=== PATIENT | female | born 1940 | race Caucasian/White ===

== ENCOUNTER 2023-04-24 09:24 | Emergency (ER) | payer MEDICARE, OTHER, SELFPAY ==
[2023-04-24] VITALS (8 sets, daily range): BP systolic 175–250; BP diastolic 70–103; PULSE 54–81; RESP 12–18; TEMP 36.5; O2SAT 97–99; BMI 26.4
--- NOTE | 2023-04-24 09:31 | ECG_ITS ---
[facility] Test Date: 2023-04-24 Pat Name: Hyacinth Medina Department: Room: Gender: Female Head Start Coordinator: : 1940 Requested By: Aayush Patton Order Number: [id number] Reading MD: William Hatch M.D. Measurements Intervals [place] Rate: 55 P: 67 [place]: 213 QRS: 2 QRSD: 105 T: 69 QT: 440 QTc: 421 Interpretive Statements SINUS BRADYCARDIA WITH FIRST DEGREE AV BLOCK POSSIBLE ANTERIOR MYOCARDIAL INFARCTION , OF INDETERMINATE AGE [30 ms Q WAVE IN V3/V4, OR R < 0.2 mV IN V4] No previous ECG available for comparison Electronically Signed On 04-24-2023 9:57:08 CDT by William Hatch M.D. [email or web address] health rehabilitation hospitalMarkITxselect medical [facility] [id number]
--- NOTE | 2023-04-24 09:32 | ED_ITS ---
HPI - General Adult General: Chief complaint: Weakness Stated complaint: bradycardia Time Seen by Provider: 04/24/23 09:28 Source: patient Mode of arrival: EMS History of Present Illness: 82-year-old female presents emergency room via EMS. called EMS reported that she she has been increasingly weak and confused she has some baseline issues with memory at times. She has a history of hypertension she did take her medications today despite that she has markedly elevated blood pressure. Initially her heart rate was in the 50s and she arrived and varies between the mid 50s and upper 60 with sinus bradycardia. She denies chest pain shortness of breath or abdominal pain. Associated symptoms: Reports confusion; Deny chest pain, cough, diaphoresis, decreased appetite, dyspnea, fevers/chills, headache(s), malaise, nausea, rash, palpitations, seizures, short of breath, syncope, vomiting or weakness Review of Systems Const: Denies: fever(s), chills, fatigue, malaise or diaphoresis ENMT: Denies: throat pain, ear or mastoid pain, nasal discharge or nasal congestion Card: Denies: chest pain, palpitations or syncope Resp: Denies: dyspnea, productive cough or non-productive cough GI: Denies: abdominal pain, nausea or vomiting : Denies: flank pain, difficulty voiding, dysuria, urinary frequency or urinary urgency Skin/Breast: Denies: rash Neuro: Reports: confusion; Denies: headache(s) [facility] ED PFSH: Medical History (Updated 04/24/23 @ 11:51 by Aayush Mansfield DO) Hypertension Physical Exam Const: GENERAL APPEARANCE: cooperative and comfortable ORIENTATION/CO NSCIOUSNESS: Yes awake, Yes oriented to person, Yes oriented to place and Yes oriented to time HENMT: COMMON NORMALS: normocephalic, atraumatic and hearing grossly normal bilaterally HEAD & SCALP: normocephalic and atraumatic Resp: COMMON NORMALS: normal respiratory effort, No retractions, No use of accessory muscles and clear to auscultation bilaterally AUSCULTATION: clear to auscultation bilaterally Cardio: COMMON NORMALS: regular rhythm and No murmurs present (Cardio) RATE: bradycardic RHYTHM: regular rhythm GI: COMMON NORMALS: Soft to palpation and No hepatosplenomegaly present AUSCULTATION: Yes normoactive bowel sounds PALPATION: Yes Soft to palpation, No Tenderness to palpation present (GI), No Guarding due to palpation present (GI) and Yes No hepatosplenomegaly present Extremity: COMMON NORMALS: normal to inspection, capillary refill normal, no clubbing, cyanosis or edema, no calf tenderness and no pedal edema Neuro: SENSORIUM/ORIENTATION: Yes oriented to person, Yes oriented to place and Yes oriented to time Skin: COMMON NORMALS: no rashes or lesions noted GENERAL SKIN EXAM: no rashes or lesions noted Course Vital Signs: Vital signs: Vital Signs Temperature 97.7 F 04/24/23 09:25 Pulse Rate 68 04/24/23 12:41 Respiratory Rate 18 04/24/23 12:41 Blood Pressure 183/75 04/24/23 12:41 Pulse Oximetry 97 04/24/23 12:41 Oxygen Delivery Me thod Room Air 04/24/23 10:14 MDM - General Adult Medical Decision Making Patient remained bradycardic in the emergency room did not see significant dips below 60 while she was here she is feeling better. She is somewhat hypertensive. We will increase her losartan to 100 daily add amlodipine 5 daily. Set her up for an outpatient 48-hour Holter monitor and follow-up with her primary care doctor. Return if she has further problems. Reviewed labs and imaging and EKGs with the patient no acute findings noted. Medical Records I reviewed the patient's medical records. Lab Data I reviewed the patient's lab results. 04/24/23 09:15 04/24/23 09:15 Radiology Impressions Chest X-Ray 04/24/23 09:58 IMPRESSION: No acute findings. Laboratory Results WBC 6.8 10^3/uL (4.0-10.0) 04/24/23 09:15 RBC 5.01 10^6/uL (4.1-5.3) 04/24/23 09:15 Hgb 15.2 g/dL (11.5-15.3) 04/24/23 09:15 Hct 45.1 % (37.0-47.0) 04/24/23 09:15 MCV 90.0 fl (81-99) 04/24/23 09:15 MCH 30.3 pg (28.0-34.0) 04/24/23 09:15 MCHC 33.7 g/dL (30.0-36.0) 04/24/23 09:15 RDW 13.6 % (12.1-15.1) 04/24/23 09:15 Plt Count 154 10^3/cmm (130-400) 04/24/23 09:15 MPV 14.2 fL (7.4-10.4) H 04/24/23 09:15 Neut % (Auto) 56.5 % 04/24/23 09:15 Lymph % (Auto) 30.9 % 04/24/23 09:15 Hoke % (Auto) 7.8 % 04/24/23 09:15 Eos % (Auto) 3.8 % 04/24/23 09:15 Baso % (Auto) 0.9 % 04/24/23 09:15 Neut # (Auto) 3.81 10^3/uL (1.8-7.7) 04/24/23 09:15 Lymph # (Auto) 2.1 10^3/uL (0.8-4.8) 04/24/23 09:15 Hoke # (Auto) 0.5 10^3/uL (0.2-0.9) 04/24/23 09:15 Eos # (Auto) 0.3 10^3/uL (0.0-0.8) 04/24/23 09:15 Baso # (Auto) 0.1 10^3/uL (0.0-0.1) 04/24/23 09:15 Nucleated RBC % (auto) 0 % 04/24/23 09:15 Nucleated RBCs # 0.0 /100WBC 04/24/23 09:15 Sodium 141 mmol/L (136-145) 04/24/23 09:15 Potassium 3.8 mmol/L (3.5-5.1) 04/24/23 09:15 Chloride 102 mmol/L (98-107) 04/24/23 09:15 Carbon Dioxide 29 mmol/L (22-29) 04/24/23 09:15 Anion Gap 13.8 (5-19) 04/24/23 09:15 BUN 19 mg/dL (8-23) 04/24/23 09:15 Creatinine 1.0 mg/dL (0.5-0.9) H 04/24/23 09:15 GFR Calculation Not Reportable 04/24/23 09:15 Glucose 110 mg/dL (65-115) 04/24/23 09:15 Calculated Osmolality 295 mOsm/kg (285-295) 04/24/23 09:15 Calcium 9.6 mg/dL (8.5-10.5) 04/24/23 09:15 Total Bilirubin 0.6 mg/dL (0.15-1.2) 04/24/23 09:15 AST 16 U/L (0-32) 04/24/23 09:15 ALT 14 U/L (0-33) 04/24/23 09:15 Alkaline Phosphatase 57 U/L (35-105) 04/24/23 09:15 Troponin T Baseline 17 ng/L (0-10) H 04/24/23 09:15 Troponin T 120 Minute 15.58 ng/L (0-10) H 04/24/23 10:58 Delta Troponin T -1.42 ABS# (0-10) L 04/24/23 10:58 Total Protein 7.0 g/dL (6.6-8.7) 04/24/23 09:15 Albumin 4.2 g/dL (3.5-5.2) 04/24/23 09:15 Globulin 2.8 g/dL (1.3-4.6) 04/24/23 09:15 TSH 2.97 uIU/mL (0.27-4.20) 04/24/23 09:15 Discharge Plan Discharge Patient Disposition: Home Clinical Impression: Hypertension, Bradycardia Condition: Stable Prescriptions: New amlodipine 5 mg tablet 5 mg PO DAILY Qty: 30 0RF losartan 100 mg tablet 100 mg PO DAILY Qty: 30 0RF Discontinued losartan 50 mg tablet 50 mg PO QAM No Action donepezil 5 mg tablet 5 mg PO QAM tramadol 50 mg tablet 50 mg PO QAM metformin 500 mg tablet extended release 24 hr 500 mg PO QAM Vitamin D3 125 mcg (5,000 unit) Tablet 125 mcg PO QAM Discharge Orders: Discharge ED (Routine); Ordered 04/24/23 Ordered By: Aayush Mansfield Referrals: Iva Barriga MD [Primary Care Provider] - Discharge Diet: Usual diet Discharge Activity: Resume usual activity Patient Instructions: Opioid Safety, Pain Management Activity Restrictions/Additional Instructions: You are seen today for low heart rate and elevated blood pressure. Recommend you increase your losartan to 100 mg daily and add amlodipine 5 mg daily. assistant customer service manager will make arrangements for you to have an outpatient 48-hour Holter monitor and follow-up with your primary care doctor after this. Coding Level of Care Code ED Financial Foundations Associate for Mabel Judd
[2023-04-24 09:41] LABS: Basophils # 0.1 10^3/uL (0.0-0.1); Basophils % 0.9 %; Eosinophils # 0.3 10^3/uL (0.0-0.8); Eosinophils % 3.8 %; Hematocrit 45.1 % (37.0-47.0); Hemoglobin 15.2 g/dL (11.5-15.3); Lymphocytes # 2.1 10^3/uL (0.8-4.8); Lymphocytes % 30.9 %; Mean Corpuscular HGB Conc 33.7 g/dL (30.0-36.0); Mean Corpuscular Hemoglobin 30.3 pg (28.0-34.0); Mean Platelet Volume 14.2 fL (7.4-10.4); Monocytes # 0.5 10^3/uL (0.2-0.9); Monocytes % 7.8 %; Neutrophils # 3.81 10^3/uL (1.8-7.7); Neutrophils % 56.5 %; Nucleated Red Blood Cells % 0 %; Platelet Count 154 10^3/cmm (130-400); Red Blood Count 5.01 10^6/uL (4.1-5.3); Red Cell Distribution Width 13.6 % (12.1-15.1); White Blood Count 6.8 10^3/uL (4.0-10.0)
--- NOTE | 2023-04-24 09:51 | PC.PHAR ---
pt and pts verified pts medications-pts marco a states he doesnt think the pt is taking mobic 7.5mg daily anymore ext shows last filled 11/16/22 90d/s-pt states she takes ultram 50mg qam ext shows last filled 04/10/23 7d/s 50mg bid prn-notes are made in the pharmacy comments
--- NOTE | 2023-04-24 09:58 | XRR_ITS ---
PROCEDURE INFORMATION: Exam: XR Chest Exam date and time: 04/24/2023 10:02 AM Age: 82 years old Clinical indication: Cough and dyspnea; Additional info: Dyspnea/cough TECHNIQUE: Imaging protocol: Radiologic exam of the chest. Views: 1 view. COMPARISON: No relevant prior studies available. FINDINGS: Lungs: Unremarkable. No consolidation. Pleural spaces: Unremarkable. No pleural effusion. No pneumothorax. Heart/Mediastinum: Unremarkable. No cardiomegaly. Bones/joints: Unremarkable. XR/XR chest 1V portable [id number] IMPRESSION: No acute findings.
[2023-04-24] MEDS: hyDRALAzine 20 mg/mL INJ 1 mL IVP (10:04)
[2023-04-24] MEDS: enalaprilat 1.25 mg/mL Inj IVP (10:06)
[2023-04-24 10:07] LABS: Troponin(5th) Baseline 17 ng/L (0-10)
[2023-04-24 10:15] LABS: Alanine Aminotransferase 14 U/L (0-33); Albumin Level 4.2 g/dL (3.5-5.2); Alkaline Phosphatase 57 U/L (35-105); Anion Gap 13.8 (5-19); Aspartate Amino Transferase 16 U/L (0-32); Blood Urea Nitrogen 19 mg/dL (8-23); Calcium 9.6 mg/dL (8.5-10.5); Carbon Dioxide 29 mmol/L (22-29); Chloride 102 mmol/L (98-107); Globulin 2.8 g/dL (1.3-4.6); Glucose 110 mg/dL (65-115); Osmolality Calculated 295 mOsm/kg (285-295); Potassium 3.8 mmol/L (3.5-5.1); Sodium 141 mmol/L (136-145); Thyroid Stimulating Hormone 2.97 uIU/mL (0.27-4.20); Total Bilirubin 0.6 mg/dL (0.15-1.2)
[2023-04-24 11:23] LABS: Troponin 5 2HR 15.58 ng/L (0-10)
--- NOTE | 2023-04-24 11:31 | ECG_ITS ---
[facility] Test Date: 2023-04-24 Pat Name: Hyacinth Medina Department: Room: Gender: Female Configuration Management Consultant: : 1940 Requested By: Aayush Patton Order Number: [id number] Ciara MD: William Hatch M.D. Measurements Intervals [place] Rate: 68 P: 84 AR: 214 QRS: 2 QRSD: 90 T: 60 QT: 401 QTc: 429 Interpretive Statements SINUS RHYTHM WITH FIRST DEGREE AV BLOCK POSSIBLE ANTERIOR MYOCARDIAL INFARCTION , OF INDETERMINATE AGE [30 ms Q WAVE IN V3/V4, OR R < 0.2 mV IN V4] Compared to ECG 04/24/2023 09:43:05 Sinus bradycardia no longer present Myocardial infarct finding still present Electronically Signed On 04-24-2023 14:26:30 CDT by William Hatch M.D. [id number]
[2023-04-24 11:32] LABS: Troponin 5 2HR Delta -1.42 ABS# (0-10)
--- NOTE | 2023-04-25 12:28 | DCPLANNER ---
Addendum entered by Rose Maya 05/12/23 11:07: Patient did attend appointment scheduled with heart care Addendum entered by Rose Maya 04/27/23 10:58: Patient has a follow up appointment scheduled for Tuesday, May 09, 2023 at 11:30 [facility]. Original Note: flooring sales manager had message to schedule an outpatient appointment at [facility] for a 48 hour halter monitor. flooring sales manager faxed signed order to heart care, who will call patient with appointment information.
== END 2023-04-24 12:42 | disposition home or self-care (01) ==
PROVIDERS: Emergency Provider Family Medicine; PCP Family Medicine
DX: I10 Essential (primary) hypertension (principal); R00.1 Bradycardia, unspecified; Z79.84 Long term (current) use of oral hypoglycemic drugs
CPT/HCPCS: 71045; 80053; 84443; 84484; 85025; 93005; 96374; 96375; 99285; J0360; J3490

== ENCOUNTER → 2023-05-09 11:11 | Outpatient (BNVA) | payer MEDICARE, OTHER, SELFPAY | PROVIDERS: PCP Internal Medicine; Visit Provider Internal Medicine Cardiovascular Disease | DX: R00.1 Bradycardia, unspecified (principal) | CPT/HCPCS: 93225 ==

== ENCOUNTER → 2023-06-26 09:08 | Outpatient (BNVA) | payer MEDICARE, OTHER, SELFPAY | PROVIDERS: PCP Internal Medicine; Visit Provider Internal Medicine Cardiovascular Disease | DX: I47.19 Other supraventricular tachycardia (principal); R00.1 Bradycardia, unspecified; I10 Essential (primary) hypertension | CPT/HCPCS: 99204 ==

== ENCOUNTER → 2023-07-03 14:50 | Outpatient (BNVA) | payer MEDICARE, OTHER, SELFPAY | PROVIDERS: PCP Internal Medicine; Visit Provider Internal Medicine Cardiovascular Disease | DX: R00.1 Bradycardia, unspecified (principal); I47.19 Other supraventricular tachycardia; I10 Essential (primary) hypertension; E78.5 Hyperlipidemia, unspecified; E66.9 Obesity, unspecified | CPT/HCPCS: 93005 ==

== ENCOUNTER 2023-07-04 14:08 | Outpatient (CLI) | payer MEDICARE, OTHER, SELFPAY ==
--- NOTE | 2023-07-04 14:15 | USCV_ITS ---
Hyacinth Medina Age: 82 Gender: F : 1940 Exam Date: 07/04/2023 14:41 Ordering Phys: Jackie Freeman MD ([email or web address]) Technologist: SHAE Exam Location: [facility] [place] Indication: BRADYCADIA BP: 160 / 83 HR: 63 Rhythm: Sinus Technical Quality: Adequate MEASUREMENTS (Male / Female) Normal Values 2D ECHO LVOT Diameter 2.0 cm LV Ejection Fraction MOD 2C 70.0 % LV Ejection Fraction 2C AL 68.9 % LA Diameter 3.5 cm LA Width 3.4 cm LA Height 4.5 cm RA Width 2.9 cm RA Height 5.1 cm Aorta at Sinotubular Diameter 2.2 cm IVC Diameter 1.1 cm M-MODE Aortic Annulus Diameter 2.4 cm LA Ao Ratio MM 1.3 MV E Point Septal Separation 0.2 cm DOPPLER AV Peak Velocity 133.0 cm/s LVOT Peak Velocity 138.0 cm/s AV Area Cont Eq vti 3.7 cm squared AV Area Cont Eq pk 3.2 cm squared MV Peak Velocity 100.0 cm/s MV Area PHT 3.3 cm squared Mitral E to A Ratio 0.7 MV E' Velocity 36.0 cm/s Mitral E to MV E' Ratio 8.9 Mitral E to LV E' Lateral Ratio 8.9 Mitral E to LV E' Septal Ratio 9.0 TR Peak Velocity 271.0 cm/s TR Peak Gradient 29.4 mmHg TR Mean Velocity 211.7 cm/s TR Mean Gradient 19.0 mmHg TR Velocity Time Integral 81.1 cm TV Peak E Velocity 56.0 cm/s Right Atrial Pressure 3.0 mmHg Pulmonary Artery Systolic Pressu 32.4 mmHg PV Peak Velocity 144.0 cm/s RV Acceleration Time 0.1 s RV Ejection Time 0.3 s RV AcT/ET 0.2 FINDINGS Left Ventricle Normal left ventricular size, systolic function and wall thickness, with no regional wall motion abnormalities. Left ventricular ejection fraction is estimated at 65 %. Normal diastolic function. Right Ventricle Normal right ventricular size and systolic function. Right ventricular systolic pressure 34 mmHg. Right Atrium Normal right atrial size. Left Atrium Normal left atrial size. Mitral Valve Structurally normal mitral valve. No mitral valve stenosis. No mitral valve regurgitation. Aortic Valve Structurally normal trileaflet aortic valve. No aortic valve stenosis. Trace aortic valve regurgitation. Tricuspid Valve Structurally normal tricuspid valve. No tricuspid valve stenosis. Mild tricuspid valve regurgitation. Pulmonic Valve Structurally normal pulmonic valve. No pulmonary valve stenosis. Trace pulmonary valve regurgitation. Pericardium No pericardial effusion. Aorta Normal size aortic root and proximal ascending aorta. IVC Normal IVC dimension with >50% respiratory change of the inferior vena cava. CONCLUSIONS 1. Normal left ventricular size, systolic function and wall thickness, with no regional wall motion abnormalities. Left ventricular ejection fraction is estimated at 65 %. Normal diastolic function. 2. Mild tricuspid valve regurgitation. 3.Pulmonary artery pressure estimated at 34 mm Hg. 4. No prior similar studies to compare. Jackie Freeman MD (Electronically Signed) Final Date: 09 July 2023 22:23 S
== END 2023-07-04 14:09 | disposition home or self-care (01) ==
PROVIDERS: PCP Internal Medicine; Visit Provider Internal Medicine Cardiovascular Disease
DX: R00.1 Bradycardia, unspecified (principal); I07.1 Rheumatic tricuspid insufficiency
CPT/HCPCS: 93306

== ENCOUNTER → 2023-07-24 13:54 | Outpatient (BNVA) | payer MEDICARE, OTHER, SELFPAY | PROVIDERS: PCP Internal Medicine; Visit Provider Nurse Practitioner Family | DX: I10 Essential (primary) hypertension (principal) | CPT/HCPCS: 99213 ==

== ENCOUNTER 2023-10-11 14:18 | Emergency (ER) | payer MEDICARE, OTHER, SELFPAY ==
[2023-10-11 14:19] VITALS: BP 126/67; PULSE 60; RESP 16; TEMP 36.8; O2SAT 97
--- NOTE | 2023-10-11 14:25 | PC.NURSE ---
Pt placed on bedside equipment monitor phototypesetting
--- NOTE | 2023-10-11 14:34 | XR_ITS ---
WS: [id number] Portable AP upright chest, 10/11/2023 Clinical Data: dyspnea/cough Comparison: Portable chest, 04/24/2023 Findings: No nodules, masses or effusions are seen. The heart is normal. The pulmonary vascularity is not increased. No pneumonia or pneumothorax is seen. The aortic arch and descending thoracic aorta s how tortuosity. There are monitor leads on the chest wall. Impression: Atherosclerosis.
--- NOTE | 2023-10-11 14:34 | ECG_ITS ---
[facility] Test Date: 2023-10-11 Pat Name: Hyacinth Medina Department: Room: Gender: Female Ear Pull Machine Operator: : 1940 Requested By: Aayush Patton Order Number: [id number] Ciara MD: Alexandre Cordoba M.D. Measurements Intervals [place] Rate: 56 P: 81 SC: 207 QRS: 28 QRSD: 112 T: 53 QT: 460 QTc: 446 Interpretive Statements SINUS BRADYCARDIA LOW QRS VOLTAGE IN PRECORDIAL LEADS [QRS DEFLECTION < 1.0 mV IN CHEST LEADS] POSSIBLE ANTERIOR MYOCARDIAL INFARCTION , OF INDETERMINATE AGE [30 ms Q WAVE IN V3/V4, OR R < 0.2 mV IN V4] Compared to ECG 06/26/2023 09:40:20 Sinus rhythm no longer present Myocardial infarct finding still present Electronically Signed On 10-11-2023 18:26:34 FRONT WINDOW CASHIER by Alexandre Cordoba M.D. [id number]
[2023-10-11 14:47] LABS: Basophils # 0.1 10^3/uL (0.0-0.1); Basophils % 0.8 %; Eosinophils # 0.2 10^3/uL (0.0-0.8); Hematocrit 39.8 % (36-47); Lymphocytes # 2.4 10^3/uL (0.8-4.8); Mean Corpuscular HGB Conc 35.2 g/dL (30-55); Mean Corpuscular Hemoglobin 30.3 pg (27-33); Mean Corpuscular Volume 86.1 fl (85-98); Mean Platelet Volume 13.7 fL (7.4-10.4); Monocytes # 0.7 10^3/uL (0.2-0.9); Monocytes % 8.8 %; Neutrophils # 5.05 10^3/uL (1.8-7.7); Neutrophils % 60.3 %; Nucleated Red Blood Cells % 0 %; Platelet Count 181 10^3/cmm (157-399); Red Blood Count 4.62 10^6/uL (3.85-5.65); Red Cell Distribution Width 12.6 % (12.1-15.1); White Blood Count 8.39 10^3/uL (3.29-11.43)
[2023-10-11 14:57] LABS: Slide Review Slide Review Perform
--- NOTE | 2023-10-11 15:00 | W.ED.DIZZY ---
Documented by User: Aayush Mansfield DO 10/12/23 07:24 HPI - Dizziness General: Chief Complaint: Dizziness Stated Complaint: sent by macy george Time Seen by Provider: 10/11/23 14:33 History of Present Illness: HPI Narrative: 83-year-old female with mild dementia. Patient presents to the ER today complaints of dizziness over the past 2 to 3 weeks. During his episodes patient feels like she has to sit down or she is going to fall down due to dizziness. Patient also had a decreased appetite. Denies chest pain or loss of consciousness. She has had a couple episodes of falling or nearly falling due to her dizziness but has not struck her head. She has some moderate dementia which seems to be progressively worsening recently MD elicited complaint: dizziness Onset (ago): week(s) Timing: gradual onset Severity: mild Description: room spinning Context: change in body position History of similar symptoms: Yes Exacerbating factors: change in body position Relieving factors: remaining still Associated symptoms: Denies abnormal vaginal bleeding, change in hearing, chest pain, chills, cough, diaphoresis, ear discharge, ear pressure, fevers/chills, headache(s), malaise, nausea, nasal congestion, palpitations, rash, short of breath, syncope, tinnitus, vomiting or weakness Associated neuro symptoms: Reports confusion; Deny difficulty speaking, dysphagia, diplopia, extremity weakness, facial numbness, facial weakness, gait changes, numbness in extremities or visual changes Review of Systems Const: Denies: fever(s), chills, malaise or diaphoresis ENMT: Denies: ear discharge, change in hearing, tinnitus or nasal congestion Card: Denies: chest pain, palpitations or syncope Resp: Denies: dyspnea GI: Denies: abdominal pain, nausea, vomiting or dysphagia : Denies: dysuria, urinary frequency or urinary urgency Musc: Denies: neck pain or back pain Skin/Breast: Denies: rash Neuro: Reports: dizziness, vertigo and confusion; Denies: headache(s) or numbness in extremities PFSH ED PFSH: Medical History Hyperlipidemia Obesity Benign hypertension Hypertension Physical Exam Const: GENERAL APPEARANCE: cooperative and comfortable ORIENTATION/CONSCIOUSNESS: Yes awake, Yes oriented to person, Yes oriented to place and Yes oriented to time HENMT: COMMON NORMALS: normocephalic, atraumatic and hearing grossly normal bilaterally HEAD & SCALP: normocephalic and atraumatic GI: AUSCULTATION: Yes normoactive bowel sounds Extremity: COMMON NORMALS: normal to inspection, capillary refill normal, no clubbing, cyanosis or edema, no calf tenderness and no pedal edema Neuro: SENSORIUM/ORIENTATION: Yes oriented to person, Yes oriented to place and Yes oriented to time Skin: COMMON NORMALS: no rashes or lesions noted GENERAL SKIN EXAM: no rashes or lesions noted Course Vital Signs: Vital signs: Vital Signs Temperature 98.3 F 10/11/23 14:19 Pulse Rate 58 L 10/11/23 19:02 Respiratory Rate 18 10/11/23 19:02 Blood Pressure 135/74 10/11/23 19:02 Pulse Oximetry 97 10/11/23 19:02 Oxygen Delivery Me thod Room Air 10/11/23 14:19 MDM - Dizziness Medical Decision Making CT head negative. Laboratory studies to date are unremarkable second troponin is pending EKG did not show any acute ST changes. If negative recommend referral to neurology for further evaluation or ENT. Care signed out to Dr. Villarreal at change of shift. See final notes for diagnosis and disposition. Patient was received in transfer at shift change. Patient physical exam and lab work revealed a sodium of 130, potassium 3.0, BUN/creatinine 1 7/1.2, head CT revealed no acute brain abnormality. Medical Records I reviewed the patient's medical records. Lab Data I reviewed the patient's lab results. 10/11/23 14:40 10/11/23 14:[address] 10/11/23 16:14 IMPRESSION: No acute brain abnormality Mild cerebral atrophy Left-sided sinusitis Laboratory Results WBC 8.39 10^3/uL (3.29-11.43) 10/11/23 14:40 RBC 4.62 10^6/uL (3.85-5.65) 10/11/23 14:40 Hgb 14.00 g/dL (11.27-16.99) 10/11/23 14:40 Hct 39.8 % (36-47) 10/11/23 14:40 MCV 86.1 fl (85-98) 10/11/23 14:40 MCH 30.3 pg (27-33) 10/11/23 14:40 MCHC 35.2 g/dL (30-55) 10/11/23 14:40 RDW 12.6 % (12.1-15.1) 10/11/23 14:40 Plt Count 181 10^3/cmm (157-399) 10/11/23 14:40 MPV 13.7 fL (7.4-10.4) H 10/11/23 14:40 Neut % (Auto) 60.3 % 10/11/23 14:40 Lymph % (Auto) 28.0 % 10/11/23 14:40 [place] % (Auto) 8.8 % 10/11/23 14:40 Eos % (Auto) 2.0 % 10/11/23 14:40 Baso % (Auto) 0.8 % 10/11/23 14:40 Neut # (Auto) 5.05 10^3/uL (1.8-7.7) 10/11/23 14:40 Lymph # (Auto) 2.4 10^3/uL (0.8-4.8) 10/11/23 14:40 [place] # (Auto) 0.7 10^3/uL (0.2-0.9) 10/11/23 14:40 Eos # (Auto) 0.2 10^3/uL (0.0-0.8) 10/11/23 14:40 Baso # (Auto) 0.1 10^3/uL (0.0-0.1) 10/11/23 14:40 Nucleated RBC % (auto) 0 % 10/11/23 14:40 Nucleated RBCs # 0.0 /100WBC 10/11/23 14:40 Sodium 130 mmol/L (136-145) L 10/11/23 14:40 Potassium 3.0 mmol/L (3.5-5.1) L 10/11/23 14:40 Chloride 88 mmol/L (98-107) L 10/11/23 14:40 Carbon Dioxide 29 mmol/L (22-29) 10/11/23 14:40 Anion Gap 16.0 (5-19) 10/11/23 14:40 BUN 17 mg/dL (8-23) 10/11/23 14:40 Creatinine 1.2 mg/dL (0.5-0.9) H 10/11/23 14:40 GFR Calculation Not Reportable 10/11/23 14:40 Glucose 112 mg/dL (65-115) 10/11/23 14:40 Calculated Osmolality 272 mOsm/kg (285-295) L 10/11/23 14:40 Calcium 10.1 mg/dL (8.5-10.5) 10/11/23 14:40 Total Bilirubin 0.4 mg/dL (0.15-1.2) 10/11/23 14:40 AST 16 U/L (0-32) 10/11/23 14:40 ALT 13 U/L (0-33) 10/11/23 14:40 Alkaline Phosphatase 60 U/L (35-105) 10/11/23 14:40 Troponin T Baseline 17 ng/L (0-10) H 10/11/23 14:40 Troponin T 120 Minute 16.60 ng/L (0-10) H 10/11/23 17:40 Delta Troponin T -0.40 ABS# (0-10) L 10/11/23 17:40 Total Protein 7.4 g/dL (6.6-8.7) 10/11/23 14:40 Albumin 4.2 g/dL (3.5-5.2) 10/11/23 14:40 Globulin 3.2 g/dL (1.3-4.6) 10/11/23 14:40 Discharge Plan Discharge Patient Disposition: Home Clinical Impression: Vertigo Condition: Stable Prescriptions: No Action meloxicam 7.5 mg tablet 7.5 mg PO DAILY acetaminophen [Tylenol Arthritis Pain] 650 mg tablet extended release 650 mg PO BEDTIME amlodipine 10 mg tablet 10 mg PO DAILY Qty: 90 3RF chlorthalidone 25 mg tablet 25 mg PO DAILY Qty: 30 1RF tramadol 50 mg tablet 50 mg PO BID PRN (Reason: Pain) metformin 500 mg tablet extended release 24 hr 500 mg PO QAM cholecalciferol (vitamin D3) [Vitamin D3] 125 mcg (5,000 unit) Tablet 125 mcg PO QAM losartan 100 mg tablet 100 mg PO DAILY Qty: 30 0RF Discharge Orders: Discharge ED (Routine); Ordered 10/11/23 Ordered By: Nickolas Villarreal Referrals: Andres Puckett DO [Primary Care Provider] - 1 week Patient Instructions: Vertigo (ED) Activity Restrictions/Additional Instructions: Your workup in ER did not reveal any acute cause of your vertigo. Please follow-up with your family practice physician within the next 7 to 10 days for further evaluation and treatment. If your symptoms worsen please return to the ER. Coding Level of Care Code ED Platform Mill Supervisor for Chg Fwd Documented by User: Nickolas Villarreal DO 10/11/23 21:26 HPI - Dizziness General: Chief Complaint: Dizziness Stated Complaint: sent by dr dizziness Time Seen by Provider: 10/11/23 14:33 History of Present Illness: HPI Narrative: Patient presents to the ER today complaints of dizziness over the past 2 to 3 weeks. During his episodes patient feels like she has to sit down or she is going to fall down due to dizziness. Patient also had a decreased appetite. Review of Systems General: Reports: 10 or more systems reviewed and unremarkable except in HPI and below PFSH ED PFSH: Medical History Hyperlipidemia Obesity Benign hypertension Hypertension Physical Exam Const: COMMON NORMALS: no acute distress, average body habitus, patient oriented x3, no limitations, healthy appearing, alert and well nourished Neck/C-Spine: COMMON NORMALS: full ROM, no lymphadenopathy, supple, no meningeal signs, no JVD and Thyroid normal THYROID: Thyroid normal Chest: COMMONS NORMALS: normal inspection of the chest and normal palpation of entire chest wall Resp: COMMON NORMALS: normal respiratory effort, No retractions, No use of accessory muscles and clear to auscultation bilaterally AUSCULTATION: clear to auscultation bilaterally Cardio: COMMON NORMALS: no JVD, regular rate, regular rhythm, S1 normal heart sound present, S2 normal heart sound present, No gallops present (Cardio), No clicks present (Cardio), No murmurs present (Cardio) and No rub (Cardio) RATE: regular rate RHYTHM: regular rhythm HEART SOUNDS: S1 normal heart sound present and S2 normal heart sound present GI: COMMON NORMALS: Normal to inspection, nondistended, normoactive bowel sounds present, Soft to palpation, non-tender, No hepatosplenomegaly present and no masses PALPATION: Yes Soft to palpation and Yes No hepatosplenomegaly present Neuro: COMMON NORMALS: patient oriented x3 SENSORIUM/ORIENTATION: Yes alert MENINGEAL SIGNS: Yes no meningeal signs Course Vital Signs: Vital signs: Vital Signs Temperature 98.3 F 10/11/23 14:19 Pulse Rate 58 L 10/11/23 19:02 Respiratory Rate 18 10/11/23 19:02 Blood Pressure 135/74 10/11/23 19:02 Pulse Oximetry 97 10/11/23 19:02 Oxygen Delivery Me thod Room Air 10/11/23 14:19 MDM - Dizziness Medical Decision Making Patient was received in transfer at shift change. Patient physical exam and lab work revealed a sodium of 130, potassium 3.0, BUN/creatinine 1 7/1.2, head CT revealed no acute brain abnormality. Differential Diagnosis Unlikely adverse reaction to drug, benign paroxysmal positional vertigo, orthostatic hypotension, vertebral basilar insufficiency, cerebrovascular accident, acute vestibular neuronitis or transient cerebral ischemia Medical Records I reviewed the patient's medical records. Lab Data I reviewed the patient's lab results. 10/11/23 14:40 10/11/23 14:[address] 10/11/23 16:14 IMPRESSION: No acute brain abnormality Mild cerebral atrophy Left-sided sinusitis Laboratory Results WBC 8.39 10^3/uL (3.29-11.43) 10/11/23 14:40 RBC 4.62 10^6/uL (3.85-5.65) 10/11/23 14:40 Hgb 14.00 g/dL (11.27-16.99) 10/11/23 14:40 Hct 39.8 % (36-47) 10/11/23 14:40 MCV 86.1 fl (85-98) 10/11/23 14:40 MCH 30.3 pg (27-33) 10/11/23 14:40 MCHC 35.2 g/dL (30-55) 10/11/23 14:40 RDW 12.6 % (12.1-15.1) 10/11/23 14:40 Plt Count 181 10^3/cmm (157-399) 10/11/23 14:40 MPV 13.7 fL (7.4-10.4) H 10/11/23 14:40 Neut % (Auto) 60.3 % 10/11/23 14:40 Lymph % (Auto) 28.0 % 10/11/23 14:40 [place] % (Auto) 8.8 % 10/11/23 14:40 Eos % (Auto) 2.0 % 10/11/23 14:40 Baso % (Auto) 0.8 % 10/11/23 14:40 Neut # (Auto) 5.05 10^3/uL (1.8-7.7) 10/11/23 14:40 Lymph # (Auto) 2.4 10^3/uL (0.8-4.8) 10/11/23 14:40 [place] # (Auto) 0.7 10^3/uL (0.2-0.9) 10/11/23 14:40 Eos # (Auto) 0.2 10^3/uL (0.0-0.8) 10/11/23 14:40 Baso # (Auto) 0.1 10^3/uL (0.0-0.1) 10/11/23 14:40 Nucleated RBC % (auto) 0 % 10/11/23 14:40 Nucleated RBCs # 0.0 /100WBC 10/11/23 14:40 Sodium 130 mmol/L (136-145) L 10/11/23 14:40 Potassium 3.0 mmol/L (3.5-5.1) L 10/11/23 14:40 Chloride 88 mmol/L (98-107) L 10/11/23 14:40 Carbon Dioxide 29 mmol/L (22-29) 10/11/23 14:40 Anion Gap 16.0 (5-19) 10/11/23 14:40 BUN 17 mg/dL (8-23) 10/11/23 14:40 Creatinine 1.2 mg/dL (0.5-0.9) H 10/11/23 14:40 GFR Calculation Not Reportable 10/11/23 14:40 Glucose 112 mg/dL (65-115) 10/11/23 14:40 Calculated Osmolality 272 mOsm/kg (285-295) L 10/11/23 14:40 Calcium 10.1 mg/dL (8.5-10.5) 10/11/23 14:40 Total Bilirubin 0.4 mg/dL (0.15-1.2) 10/11/23 14:40 AST 16 U/L (0-32) 10/11/23 14:40 ALT 13 U/L (0-33) 10/11/23 14:40 Alkaline Phosphatase 60 U/L (35-105) 10/11/23 14:40 Troponin T Baseline 17 ng/L (0-10) H 10/11/23 14:40 Troponin T 120 Minute 16.60 ng/L (0-10) H 10/11/23 17:40 Delta Troponin T -0.40 ABS# (0-10) L 10/11/23 17:40 Total Protein 7.4 g/dL (6.6-8.7) 10/11/23 14:40 Albumin 4.2 g/dL (3.5-5.2) 10/11/23 14:40 Globulin 3.2 g/dL (1.3-4.6) 10/11/23 14:40 All radiology interpretation(s) finalized by discharge Discharge Plan Discharge Patient Disposition: Home Clinical Impression: Vertigo Condition: Stable Prescriptions: No Action meloxicam 7.5 mg tablet 7.5 mg PO DAILY acetaminophen [Tylenol Arthritis Pain] 650 mg tablet extended release 650 mg PO BEDTIME amlodipine 10 mg tablet 10 mg PO DAILY Qty: 90 3RF chlorthalidone 25 mg tablet 25 mg PO DAILY Qty: 30 1RF tramadol 50 mg tablet 50 mg PO BID PRN (Reason: Pain) metformin 500 mg tablet extended release 24 hr 500 mg PO QAM cholecalciferol (vitamin D3) [Vitamin D3] 125 mcg (5,000 unit) Tablet 125 mcg PO QAM losartan 100 mg tablet 100 mg PO DAILY Qty: 30 0RF Discharge Orders: Discharge ED (Routine); Ordered 10/11/23 Ordered By: Nickolas Villarreal Referrals: Andres Puckett DO [Primary Care Provider] - 1 week Patient Instructions: Vertigo (ED) Activity Restrictions/Additional Instructions: Your workup in ER did not reveal any acute cause of your vertigo. Please follow-up with your family practice physician within the next 7 to 10 days for further evaluation and treatment. If your symptoms worsen please return to the ER. Coding Level of Care Code ED Platform Mill Supervisor for Mabel Judd
[2023-10-11 15:11] LABS: Troponin(5th) Baseline 17 ng/L (0-10)
[2023-10-11 15:15] LABS: Alanine Aminotransferase 13 U/L (0-33); Albumin Level 4.2 g/dL (3.5-5.2); Alkaline Phosphatase 60 U/L (35-105); Aspartate Amino Transferase 16 U/L (0-32); Blood Urea Nitrogen 17 mg/dL (8-23); Calcium 10.1 mg/dL (8.5-10.5); Carbon Dioxide 29 mmol/L (22-29); Chloride 88 mmol/L (98-107); Globulin 3.2 g/dL (1.3-4.6); Glucose 112 mg/dL (65-115); Osmolality Calculated 272 mOsm/kg (285-295); Sodium 130 mmol/L (136-145); Total Bilirubin 0.4 mg/dL (0.15-1.2); Total Protein 7.4 g/dL (6.6-8.7)
--- NOTE | 2023-10-11 16:14 | CTR_ITS ---
PROCEDURE INFORMATION: Exam: CT Head Without Contrast Exam date and time: 10/11/2023 4:47 PM Age: 83 years old Clinical indication: Dizziness; Additional info: Fall, dizziness TECHNIQUE: Imaging protocol: Computed tomography of the head without contrast. Radiation optimization: All CT scans at this facility use at least one of these dose optimization techniques: automated exposure control; mA and/or kV adjustment per patient size (includes targeted exams where dose is matched to clinical indication); or iterative reconstruction. COMPARISON: No relevant prior studies available. RADIATION DOSE METRICS: Total DLP (mGy-cm): 1131 FINDINGS: Brain: Mild diffuse cerebral atrophy is noted. Cerebral ventricles: No ventriculomegaly. No midline shift. Paranasal sinuses: See Bones/joints finding. Mastoid air cells: Visualized mastoid air cells are well aerated. Bones/joints: There is evidence of left sphenoid and ethmoid sinusitis. Soft tissues: Unremarkable. CT/CT head wo con* [id number] IMPRESSION: No acute brain abnormality Mild cerebral atrophy Left-sided sinusitis
[2023-10-11 16:44] VITALS: BP 113/47; BP 115/59; BP 141/67; PULSE 59; PULSE 67; PULSE 86
--- NOTE | 2023-10-11 17:22 | ECG_ITS ---
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 Measurements Intervals [place] Rate: 59 P: 80 NV: 240 QRS: 17 QRSD: 97 T: 38 QT: 436 QTc: 435 Interpretive Statements SINUS BRADYCARDIA WITH FIRST DEGREE AV BLOCK WITH OCCASIONAL SUPRAVENTRICULAR PREMATURE COMPLEXES LOW QRS VOLTAGE IN PRECORDIAL LEADS [QRS DEFLECTION < 1.0 mV IN CHEST LEADS] NONSPECIFIC T-WAVE ABNORMALITY Compared to ECG 10/11/2023 14:38:52 First degree AV block now present T-wave abnormality now present Myocardial infarct finding no longer present Electronically Signed On 10-11-2023 18:33:24 PHOTOVOLTAIC PANEL INSTALLER by Alexandre Cordoba M.D. [id number]
[2023-10-11 19:02] VITALS: BP 135/74; PULSE 58; RESP 18; O2SAT 97
== END 2023-10-11 19:14 | disposition home or self-care (01) ==
PROVIDERS: Emergency Provider Family Medicine; PCP Internal Medicine
DX: R42 Dizziness and giddiness (principal); Z79.84 Long term (current) use of oral hypoglycemic drugs; E78.5 Hyperlipidemia, unspecified; I10 Essential (primary) hypertension
CPT/HCPCS: 36415; 70450; 71045; 80053; 84484; 85025; 93005; 99285

== ENCOUNTER → 2024-01-22 10:46 | Outpatient (BNVA) | payer MEDICARE, OTHER, SELFPAY | PROVIDERS: PCP Internal Medicine; Visit Provider Nurse Practitioner Family | DX: I10 Essential (primary) hypertension (principal) | CPT/HCPCS: 99213 ==

== ENCOUNTER → 2024-07-30 11:28 | Outpatient (BNVA) | payer MEDICARE, OTHER, SELFPAY | PROVIDERS: PCP Internal Medicine; Visit Provider Internal Medicine Cardiovascular Disease | DX: I47.19 Other supraventricular tachycardia (principal); I10 Essential (primary) hypertension; E78.2 Mixed hyperlipidemia | CPT/HCPCS: 99214 ==

== ENCOUNTER 2024-08-24 14:26 | Outpatient (CLI) | payer MEDICARE, OTHER, SELFPAY ==
[2024-08-24 14:39] LABS: Basophils # 0.1 10^3/uL (0.0-0.1); Basophils % 1.3 %; Eosinophils # 0.3 10^3/uL (0.0-0.8); Eosinophils % 4.8 %; Hematocrit 42.1 % (36-47); Lymphocytes % 32.3 %; Mean Corpuscular HGB Conc 32.5 g/dL (30-55); Mean Corpuscular Hemoglobin 29.7 pg (27-33); Mean Corpuscular Volume 91.1 fl (85-98); Mean Platelet Volume 14.7 fL (7.4-10.4); Monocytes # 0.5 10^3/uL (0.2-0.9); Monocytes % 8.9 %; Neutrophils # 3.18 10^3/uL (1.8-7.7); Neutrophils % 52.5 %; Nucleated Red Blood Cells % 0 %; Platelet Count 150 10^3/cmm (157-399); Red Blood Count 4.62 10^6/uL (3.85-5.65); Red Cell Distribution Width 14.1 % (12.1-15.1); White Blood Count 6.06 10^3/uL (3.29-11.43)
[2024-08-24 14:53] LABS: Estmated Average Glucose 126
[2024-08-24 15:00] LABS: Alanine Aminotransferase 12 U/L (0-33); Albumin Level 4.1 g/dL (3.5-5.2); Alkaline Phosphatase 80 U/L (35-105); Anion Gap 10.7 (5-19); Aspartate Amino Transferase 15 U/L (0-32); Blood Urea Nitrogen 16 mg/dL (8-23); Calcium 9.3 mg/dL (8.5-10.5); Carbon Dioxide 32 mmol/L (22-29); Chloride 98 mmol/L (98-107); Cholesterol 231 mg/dL (0-200); Glucose 100 mg/dL (65-115); HDL Cholesterol 55 mg/dL (60-100); LDL Cholesterol Calculated 147 mg/dL (50-129); LDL HDL Ratio 2.67 RATIO (0.00-3.22); Osmolality Calculated 285 mOsm/kg (285-295); Potassium 3.7 mmol/L (3.5-5.1); Sodium 137 mmol/L (136-145); Total Bilirubin 0.4 mg/dL (0.15-1.2); Total Protein 7.1 g/dL (6.6-8.7); Triglycerides 147 mg/dL (0-150)
== END 2024-08-24 14:27 | disposition home or self-care (01) ==
PROVIDERS: Absent Provider Family Medicine; PCP Internal Medicine; Visit Provider Family Medicine
DX: I10 Essential (primary) hypertension (principal)
CPT/HCPCS: 80053; 80061; 83036; 85025

== ENCOUNTER 2024-10-11 19:17 | Emergency (ER) | payer MEDICARE, OTHER, SELFPAY ==
[2024-10-11] VITALS (10 sets, daily range): BP systolic 179–206; BP diastolic 73–94; PULSE 73–80; RESP 18–20; TEMP 36.8; O2SAT 93–98; BMI 26.6
--- NOTE | 2024-10-11 19:28 | XRR_ITS ---
PROCEDURE INFORMATION: Exam: XR Chest Exam date and time: 10/11/2024 7:45 PM Age: 84 years old Clinical indication: Weakness; Cough TECHNIQUE: Imaging protocol: Radiologic exam of the chest. Views: 1 view. COMPARISON: CR XR chest 1V portable [id number] 10/11/2023 3:13 PM FINDINGS: Lungs: Unremarkable. No consolidation. Pleural spaces: Unremarkable. No pleural effusion. No pneumothorax. Heart/Mediastinum: Unremarkable. No cardiomegaly. Bones/joints: Unremarkable. XR/XR chest 1V portable [id number] IMPRESSION: No acute findings.
--- NOTE | 2024-10-11 19:28 | CTR_ITS ---
PROCEDURE INFORMATION: Exam: CT Head Without Contrast Exam date and time: 10/11/2024 7:53 PM Age: 84 years old Clinical indication: Injury or trauma; Blunt trauma (contusions or hematomas); EMS arrival from skilled nursing for unwitnessed fall. C/O general weakness. TECHNIQUE: Imaging protocol: Computed tomography of the head without contrast. Radiation optimization: All CT scans at this facility use at least one of these dose optimization techniques: automated exposure control; mA and/or kV adjustment per patient size (includes targeted exams where dose is matched to clinical indication); or iterative reconstruction. COMPARISON: CT head wo con* [id number] 10/11/2023 4:47 PM RADIATION DOSE METRICS: Total DLP (mGy-cm): 1136.55 FINDINGS: Brain: Age-related brain parenchymal atrophy. Areas of hypoattenuation in the periventricular and subcortical deep white matter likely on the basis of chronic microvascular ischemic changes. No acute intra cranial hemorrhage. No mass effect or midline shift. No definitive CT evidence of acute territorial infarction. Cerebral ventricles: Prominence of the lateral ventricular system likely on the basis of ex vacuo dilatation. Paranasal sinuses: Paranasal sinus mucosal thickening with some air-fluid levels in the left sphenoid sinus. Mastoid air cells: Visualized mastoid air cells are well aerated. Bones: Intact calvarium. Soft tissues: Unremarkable. CT/CT head wo con* [id number] IMPRESSION: No acute intracranial process. Chronic senescent changes.
--- NOTE | 2024-10-11 19:28 | ECG_ITS ---
[facility] Date: 2024-[facility]-11 Pat Name: Hyacinth Medina Department: Room: Gender: Female Digital Research Analyst: : 1940 Requested By: Priscilla Patton Order Number: [id number] Urbina MD: Alexandre Cordoba M.D. Measurements Intervals [place] Rate: 75 P: 60 MO: 213 QRS: 0 QRSD: 85 T: 75 QT: 353 QTc: 395 Interpretive Statements SINUS RHYTHM WITH FIRST DEGREE AV BLOCK NONSPECIFIC T-WAVE ABNORMALITY Compared to ECG 10/11/2023 17:22:18 Sinus bradycardia no longer present T-wave abnormality still present Electronically Signed On 10-12-2024 13:17:38 WIRELESS INTERNET INSTALLER by Alexandre Cordoba M.D. [id number]
--- NOTE | 2024-10-11 19:47 | W.ED.FALL ---
HPI - Fall General: Chief Complaint: Fall Stated Complaint: HIGH BLOOD PRESSURE Time Seen by Provider: 10/11/24 19:29 History of Present Illness: 84-year-old female with history of mild dementia, hyperlipidemia and hypertension who presents emergency room by ambulance after she was found in her closet on the floor. They think she may have passed out. Unclear if she had hit her head or not. She says she feels fine and she does not know why she is here. She does not remember the event. She knows her birthdate and her name. She is a little unclear on her age. No focal motor deficits. No facial droop. No slurred speech. She follows commands appropriately. No abdominal pain. No chest pain. No nausea or vomiting. No obvious injuries. Related Data Home Medications Medication Instructions Recorded Confirmed tramadol 50 mg tablet 50 mg PO BID PRN Pain 04/24/23 01/22/24 acetaminophen 650 mg 650 mg PO BEDTIME 06/26/23 01/22/24 tablet,extended release (Tylenol Arthritis Pain) Previous Rx's Medication Instructions Recorded losartan 50 mg tablet 50 mg PO DAILY #30 tabs 08/26/24 Allergies Allergy/AdvReac Type Severity Reaction Status Date / Time codeine Allergy Unknown Unknown Verified 07/30/24 11:33 Review of Systems Narrative: Constitutional symptoms: Negative except as documented in HPI. Skin symptoms: Negative except as documented in HPI. Eye symptoms: Negative except as documented in HPI. ENMT symptoms: Negative except as documented in HPI. Respiratory symptoms: Negative except as documented in HPI. Cardiovascular symptoms: Negative except as documented in HPI. Gastrointestinal symptoms: Negative except as documented in HPI. Genitourinary symptoms: Negative except as documented in HPI. Musculoskeletal symptoms: Negative except as documented in HPI. Neurologic symptoms: Negative except as documented in HPI. Psychiatric symptoms: Negative except as documented in HPI. Endocrine symptoms: Negative except as documented in HPI. [facility] ED PFSH: Medical History Hyperlipidemia Obesity Benign hypertension Hypertension Social History Smoking and tobacco/nicotine status: never used tobacco/nicotine Physical Exam Narrative: EXAM NARRATIVE: General: Alert, no acute distress. Skin: Warm, dry. Head: Normocephalic, atraumatic. Neck: Supple, trachea midline. Eye: Extraocular movements are intact. Ears, nose, mouth and throat: mucosa moist. Cardiovascular: Regular, Normal peripheral perfusion. Respiratory: Lungs are clear to auscultation, respirations are non-labored, breath sounds are equal, Symmetrical chest wall expansion. Gastrointestinal: Soft, Nontender, Non distended Musculoskeletal: Normal ROM, no deformity. Neurological: Alert and oriented, No focal neurological deficit observed. Psychiatric: Cooperative, appropriate mood & affect. Course Vital Signs: Vital signs: Vital Signs Temperature 98.2 F 10/11/24 19:29 Pulse Rate 78 10/11/24 19:29 Respiratory Rate 20 H 10/11/24 19:29 Blood Pressure 206/89 10/11/24 19: Pulse Oximetry 98 10/11/24 19:29 MDM - Fall Medical Decision Making Medical decision making: Differential diagnosis including but not limited to and based on the above HPI, review of systems and physical exam in this patient with syncope: Vasovagal, orthostatics hypotension, cardiac dysrhythmia, myocardial infarction, infection and hypotension, Orders placed to evaluate differential diagnosis based on the above differential, HPI and physical exam Chest x-ray: No acute process. No infiltrate. No pneumothorax. This was reviewed and interpreted by myself the emergency room physician. I also reviewed the radiology report. CT head: Senescent changes. No acute intracranial process. no intracranial hemorrhage, no evidence of infarct. no evidence of acute fracture.This was reviewed and interpreted by myself the ER physician. Lab Review: Laboratory results were reviewed and interpreted by myself the emergency room physician. No leukocytosis. No anemia. No renal failure. Initial troponin is negative. She has had no chest pain. No significant EKG changes. I reviewed the patient's medical record. Reexamination: Patient remained stable. No increased work of breathing. No altered mental status. No focal motor deficits. Assessment and plan: Fall, possible syncope - Discharged home - Discussed plan with patient. Answered any questions. - Evaluation and treatment of this problem were appropriate in the emergency setting. Lab Data 10/11/24 19:39 10/11/24 19:39 Radiology Impressions Chest X-Ray 10/11/24 19:28 IMPRESSION: No acute findings. Head CT 10/11/24 19:28 IMPRESSION: No acute intracranial process. Chronic senescent changes. Laboratory Results WBC 7.36 10^3/uL (3.29-11.43) 10/11/24 19:39 RBC 4.61 10^6/uL (3.85-5.65) 10/11/24 19:39 Hgb 13.50 g/dL (11.27-16.99) 10/11/24 19:39 Hct 42.2 % (36-47) 10/11/24 19:39 MCV 91.5 fl (85-98) 10/11/24 19:39 MCH 29.3 pg (27-33) 10/11/24 19:39 MCHC 32.0 g/dL (30-55) 10/11/24 19:39 RDW 13.9 % (12.1-15.1) 10/11/24 19:39 Plt Count 111 10^3/cmm (157-399) L 10/11/24 19:39 MPV 13.9 fL (7.4-10.4) H 10/11/24 19:39 Neut % (Auto) 82.6 % 10/11/24 19:39 Lymph % (Auto) 6.5 % 10/11/24 19:39 [place] % (Auto) 8.7 % 10/11/24 19:39 Eos % (Auto) 1.1 % 10/11/24 19:39 Baso % (Auto) 0.7 % 10/11/24 19:39 Neut # (Auto) 6.08 10^3/uL (1.8-7.7) 10/11/24 19:39 Lymph # (Auto) 0.5 10^3/uL (0.8-4.8) L 10/11/24 19:39 [place] # (Auto) 0.6 10^3/uL (0.2-0.9) 10/11/24 19:39 Eos # (Auto) 0.1 10^3/uL (0.0-0.8) 10/11/24 19:39 Baso # (Auto) 0.1 10^3/uL (0.0-0.1) 10/11/24 19:39 Nucleated RBC % (auto) 0 % 10/11/24 19:39 Nucleated RBCs # 0.0 /100WBC 10/11/24 19:39 Sodium 139 mmol/L (136-145) 01/31/25 19:39 Potassium 3.8 mmol/L (3.5-5.1) 10/11/24 19:39 Chloride 102 mmol/L (98-107) 10/11/24 19:39 Carbon Dioxide 27 mmol/L (22-29) 10/11/24 19:39 Anion Gap 13.8 (5-19) 10/11/24 19:39 BUN 18 mg/dL (8-23) 10/11/24 19:39 Creatinine 1.0 mg/dL (0.5-0.9) H 10/11/24 19:39 GFR Calculation Not Reportable 10/11/24 19:39 Glucose 150 mg/dL (65-115) H 10/11/24 19:39 Calculated Osmolality 293 mOsm/kg (285-295) 10/11/24 19:39 Calcium 9.3 mg/dL (8.5-10.5) 10/11/24 19:39 Total Bilirubin 0.4 mg/dL (0.15-1.2) 10/11/24 19:39 AST 14 U/L (0-32) 10/11/24 19:39 ALT 9 U/L (0-33) 10/11/24 19:39 Alkaline Phosphatase 95 U/L (35-105) 10/11/24 19:39 Troponin T Baseline 17 ng/L (0-10) H 10/11/24 19:39 Total Protein 7.3 g/dL (6.6-8.7) 10/11/24 19:39 Albumin 4.4 g/dL (3.5-5.2) 10/11/24 19:39 Globulin 2.9 g/dL (1.3-4.6) 10/11/24 19:39 All radiology interpretation(s) finalized by discharge Discharge Plan Discharge Patient Disposition: Home Clinical Impression: Fall, Dementia Condition: Stable Prescriptions: No Action acetaminophen [Tylenol Arthritis Pain] 650 mg tablet extended release 650 mg PO BEDTIME losartan 50 mg tablet 50 mg PO DAILY Qty: 30 3RF tramadol 50 mg tablet 50 mg PO BID PRN (Reason: Pain) Discharge Orders: Discharge ED (Routine); Ordered 10/11/24 Ordered By: Priscilla Barnes Referrals: Elder Cancino MD [Primary Care Provider] - Discharge Diet: Usual diet Discharge Activity: Increase activity as tolerated Patient Instructions: Fall Prevention for Older Adults (ED), Opioid Safety, Pain Management Activity Restrictions/Additional Instructions: Thank you for choosing [facility] for your healthcare needs today. Please realize this is an emergency room and that we are providing you with a medical screening exam and this may not be complete and all inclusive of all the testing and or work up that you may need to determine your ailment or severity of your illness. You have been screened and evaluated and felt safe for discharge. Health conditions do change or evolve sometimes and as such it is important that you follow up with your Primary Doctor to be re checked, 3-5 days is a general good time frame for follow up. You are always welcome to return to the ED for re assessment if your symptoms are worsening or you have new concerns Coding Level of Care Code ED Hazard Waste Handler for Mabel Judd
[2024-10-11 19:52] LABS: Basophils # 0.1 10^3/uL (0.0-0.1); Basophils % 0.7 %; Eosinophils # 0.1 10^3/uL (0.0-0.8); Eosinophils % 1.1 %; Hematocrit 42.2 % (36-47); Lymphocytes # 0.5 10^3/uL (0.8-4.8); Lymphocytes % 6.5 %; Mean Corpuscular Hemoglobin 29.3 pg (27-33); Mean Corpuscular Volume 91.5 fl (85-98); Mean Platelet Volume 13.9 fL (7.4-10.4); Monocytes # 0.6 10^3/uL (0.2-0.9); Monocytes % 8.7 %; Neutrophils # 6.08 10^3/uL (1.8-7.7); Neutrophils % 82.6 %; Nucleated Red Blood Cells % 0 %; Platelet Count 111 10^3/cmm (157-399); Red Blood Count 4.61 10^6/uL (3.85-5.65); Red Cell Distribution Width 13.9 % (12.1-15.1); White Blood Count 7.36 10^3/uL (3.29-11.43)
[2024-10-11 20:02] LABS: Troponin(5th) Baseline 17 ng/L (0-10)
[2024-10-11 20:06] LABS: Alanine Aminotransferase 9 U/L (0-33); Albumin Level 4.4 g/dL (3.5-5.2); Alkaline Phosphatase 95 U/L (35-105); Anion Gap 13.8 (5-19); Aspartate Amino Transferase 14 U/L (0-32); Blood Urea Nitrogen 18 mg/dL (8-23); Calcium 9.3 mg/dL (8.5-10.5); Carbon Dioxide 27 mmol/L (22-29); Chloride 102 mmol/L (98-107); Creatinine Clr Calc Pharmacy 44.8262; Globulin 2.9 g/dL (1.3-4.6); Glucose 150 mg/dL (65-115); Osmolality Calculated 293 mOsm/kg (285-295); Potassium 3.8 mmol/L (3.5-5.1); Sodium 139 mmol/L (136-145); Total Bilirubin 0.4 mg/dL (0.15-1.2); Total Protein 7.3 g/dL (6.6-8.7)
--- NOTE | 2024-10-11 20:50 | ECG_ITS ---
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 Measurements Intervals [place] Rate: 75 P: 60 [place]: 213 QRS: 0 QRSD: 85 T: 75 QT: 353 QTc: 395 Interpretive Statements SINUS RHYTHM WITH FIRST DEGREE AV BLOCK NONSPECIFIC T-WAVE ABNORMALITY Compared to ECG 10/11/2023 17:22:18 Sinus bradycardia no longer present T-wave abnormality still present Electronically Signed On 10-12-2024 13:29:00 LEASING ASSOCIATE by Alexandre Cordoba M.D. [email or web address]
== END 2024-10-11 21:34 | disposition home or self-care (01) ==
PROVIDERS: Emergency Provider Emergency Medicine; PCP Family Medicine
DX: F03.90 Unspecified dementia, unspecified severity, without behavioral disturbance, psychotic disturbance, mood disturbance, and anxiety (principal); W19.XXXA Unspecified fall, initial encounter; E78.5 Hyperlipidemia, unspecified; I10 Essential (primary) hypertension
CPT/HCPCS: 36415; 70450; 71045; 80053; 84484; 85025; 93005; 99285

== ENCOUNTER 2025-01-24 14:33 | Emergency (ER) | payer MEDICARE, OTHER, SELFPAY ==
[2025-01-24 14:35] VITALS: BP 180/75; PULSE 63; RESP 16; TEMP 37.1; O2SAT 95
--- NOTE | 2025-01-24 16:42 | W.ED.GENADLT ---
Documented by User: Aayush Mansfield DO 01/25/25 15:13 HPI - General Adult General: Chief complaint: General Medical Stated complaint: headaches / high bp Time Seen by Provider: 01/24/25 16:26 History of Present Illness: 84-year-old female who presents emergency room with complaints of headache and elevated blood pressure. She has a friend with her who provides assistance as well as for family lives at a distance. She reports having fallen today EMS reported that she had several falls per the usp. She denies any injuries from the falls. Family friend reference that she complains of abdominal pain earlier but she denies any now and her exam was unremarkable for abdominal pain. shelter reported systolic blood pressure over 200 she is not quite that high when she arrives here she denies headache she denies striking her head or losing consciousness when she fell. No other identifiable injuries or complaints at this time Associated symptoms: Reports headache(s); Deny chest pain, dyspnea or rash Related Data Home Medications ?Medication ?Instructions ?Recorded ?Confirmed losartan 100 mg tablet 100 mg PO DAILY 01/24/25 01/24/25 sertraline 50 mg tablet 50 mg PO DAILY 01/24/25 01/24/25 tramadol 50 mg tablet 50 mg PO BID 01/24/25 01/24/25 Allergies Allergy/AdvReac Type Severity Reaction Status Date / Time codeine Allergy Unknown Unknown Verified 01/24/25 14:43 Review of Systems Const: Denies: fever(s) or chills Card: Denies: chest pain Resp: Denies: dyspnea GI: Denies: abdominal pain : Denies: dysuria, urinary frequency or urinary urgency Musc: Denies: neck pain or back pain Skin/Breast: Denies: rash Neuro: Reports: headache(s) [facility] ED PFSH: Medical History Hyperlipidemia Obesity Benign hypertension Hypertension Social History Smoking and tobacco/nicotine status: never used tobacco/nicotine Physical Exam Const: GENERAL APPEARANCE: cooperative ORIENTATION/CONSCIOUSNESS: Yes awake HENMT: COMMON NORMALS: normocephalic, atraumatic and hearing grossly normal bilaterally HEAD & SCALP: normocephalic and atraumatic Resp: COMMON NORMALS: normal respiratory effort, No retractions, No use of accessory muscles and clear to auscultation bilaterally AUSCULTATION: clear to auscultation bilaterally Cardio: COMMON NORMALS: regular rate, regular rhythm and No murmurs present (Cardio) RATE: regular rate RHYTHM: regular rhythm GI: COMMON NORMALS: Soft to palpation and No hepatosplenomegaly present AUSCULTATION: Yes normoactive bowel sounds PALPATION: Yes Soft to palpation, No Tenderness to palpation present (GI), No Guarding due to palpation present (GI) and Yes No hepatosplenomegaly present Extremity: COMMON NORMALS: normal to inspection, capillary refill normal, no clubbing, cyanosis or edema, no calf tenderness and no pedal edema Skin: COMMON NORMALS: no rashes or lesions noted GENERAL SKIN EXAM: no rashes or lesions noted Course Vital Signs: Vital signs: Vital Signs Temperature 98.8 F 01/24/25 14:35 Pulse Rate 67 01/24/25 20:01 Respiratory Rate 18 01/24/25 20:01 Blood Pressure 155/70 01/24/25 20:01 Pulse Oximetry 96 01/24/25 20:01 Oxygen Delivery Me thod Room Air 01/24/25 18:00 MDM - General Adult Medical Decision Making Care signed out to Dr. Avendano at change of shift. See final notes for diagnosis and disposition. Patient here with headache hypertension and multiple falls. CT of the C-spine head personally reviewed no acute abnormality. Patient has been evaluated with Dr. Mansfield and myself. Blood pressure is much improved currently 175/80. Enalapril given here in the ED side effects and continued reduction. Either way given that she is asymptomatic I do not believe the blood pressure to be an emergent issue at this time and is to be followed up by PCP. Patient be sent back to residential facility. EKG reviewed shows sinus bradycardia 59 with normal AR and QTc. No axis deviation. No ST elevation. Lab Data 01/24/25 16:45 01/24/25 16:45 Radiology Impressions Cervical Spine CT 01/24/25 16:50 Follow-up IMPRESSION: No acute fracture or traumatic malalignment of the cervical spine. Degenerative changes. Head CT 01/24/25 16:50 IMPRESSION: No acute intracranial abnormality. Senescent changes. Laboratory Results WBC 7.72 10^3/uL (3.29-11.43) 01/24/25 16:45 RBC 4.68 10^6/uL (3.85-5.65) 01/24/25 16:45 Hgb 13.80 g/dL (11.27-16.99) 01/24/25 16:45 Hct 42.2 % (36-47) 01/24/25 16:45 MCV 90.2 fl (85-98) 01/24/25 16:45 MCH 29.5 pg (27-33) 01/24/25 16:45 MCHC 32.7 g/dL (30-55) 01/24/25 16:45 RDW 14.2 % (12.1-15.1) 01/24/25 16:45 Plt Count 120 10^3/cmm (157-399) L 01/24/25 16:45 MPV 13.9 fL (7.4-10.4) H 01/24/25 16:45 Neut % (Auto) 69.8 % 01/24/25 16:45 Lymph % (Auto) 18.0 % 01/24/25 16:45 [place] % (Auto) 9.3 % 01/24/25 16:45 Eos % (Auto) 1.9 % 01/24/25 16:45 Baso % (Auto) 0.6 % 01/24/25 16:45 Neut # (Auto) 5.38 10^3/uL (1.8-7.7) 01/24/25 16:45 Lymph # (Auto) 1.4 10^3/uL (0.8-4.8) 01/24/25 16:45 [place] # (Auto) 0.7 10^3/uL (0.2-0.9) 01/24/25 16:45 Eos # (Auto) 0.2 10^3/uL (0.0-0.8) 01/24/25 16:45 Baso # (Auto) 0.1 10^3/uL (0.0-0.1) 01/24/25 16:45 Nucleated RBC % (auto) 0 % 01/24/25 16:45 Nucleated RBCs # 0.0 /100WBC 01/24/25 16:45 Sodium 136 mmol/L (136-145) 01/24/25 16:45 Potassium 4.0 mmol/L (3.5-5.1) 01/24/25 16:45 Chloride 100 mmol/L (98-107) 01/24/25 16:45 Carbon Dioxide 26 mmol/L (22-29) 01/24/25 16:45 Anion Gap 14.0 (5-19) 01/24/25 16:45 BUN 18 mg/dL (8-23) 01/24/25 16:45 Creatinine 1.1 mg/dL (0.5-0.9) H 01/24/25 16:45 GFR Calculation Not Reportable 01/24/25 16:45 Glucose 110 mg/dL (65-115) 01/24/25 16:45 Calculated Osmolality 285 mOsm/kg (285-295) 01/24/25 16:45 Calcium 9.1 mg/dL (8.5-10.5) 01/24/25 16:45 Total Bilirubin 0.9 mg/dL (0.15-1.2) 01/24/25 16:45 AST 12 U/L (0-32) 01/24/25 16:45 ALT 7 U/L (0-33) 01/24/25 16:45 Alkaline Phosphatase 86 U/L (35-105) 01/24/25 16:45 Total Protein 7.2 g/dL (6.6-8.7) 01/24/25 16:45 Albumin 3.8 g/dL (3.5-5.2) 01/24/25 16:45 Globulin 3.4 g/dL (1.3-4.6) 01/24/25 16:45 Urine Color Yellow (Yellow) 01/24/25 17:34 Urine Appearance Cloudy (CLEAR) A 01/24/25 17:34 Urine pH TNP 01/24/25 17:34 Ur Specific [place] Not Reportable 01/24/25 17:34 Urine Protein Not Reportable 01/24/25 17:34 Urine Glucose (UA) Not Reportable 01/24/25 17:34 Urine Ketones Not Reportable 01/24/25 17:34 Urine Blood Not Reportable 01/24/25 17:34 Urine Nitrate Not Reportable 01/24/25 17:34 Urine Bilirubin Not Reportable 01/24/25 17:34 Urine Urobilinogen Not Reportable 01/24/25 17:34 Ur Leukocyte Esterase Not Reportable 01/24/25 17:34 Urine RBC 5-10 /hpf (0-2) H 01/24/25 17:34 Urine WBC 10-15 /hpf (0-5) H 01/24/25 17:34 Ur Squamous Epith Cells 5-10 /hpf (0-5) H 01/24/25 17:34 Amorphous Sediment Not Reportable 01/24/25 17:34 Urine Bacteria 2+ /hpf (NONE) H 01/24/25 17:34 Hyaline Casts 0-4 /lpf H 01/24/25 17:34 Urine Mucus 1+ /hpf 01/24/25 17:34 Discharge Plan Discharge Patient Disposition: Home Clinical Impression: Multiple falls, Headache Hypertension Qualifiers: Hypertension type: primary hypertension Qualified Code(s): I10 - Essential (primary) hypertension Condition: Stable Prescriptions: No Action tramadol 50 mg tablet 50 mg PO BID losartan 100 mg tablet 100 mg PO DAILY sertraline 50 mg tablet 50 mg PO DAILY Discharge Orders: Discharge ED (Routine); Ordered 01/24/25 Ordered By: Juan Alberto Fall Referrals: Elder Cancino MD [Primary Care Provider, Family Practice] Discharge Diet: Usual diet Discharge Activity: Resume usual activity Patient Instructions: Fall Prevention for Older Adults (ED), Chronic Hypertension (ED) Print Language: [place]ib[place]ian Sign Out Sign Out Data: Patient Sign Out occurred on 01/24/25 at 18:28. Patient's care was discussed, and care was transferred from Aayush Mansfield DO to Juan Alberto Fall MD. Coding Level of Care Code ED Russian Teacher for Chg Fwd Documented by User: Juan Alberto Fall MD 01/24/25 19:42 HPI - General Adult General: Chief complaint: General Medical Stated complaint: headaches / high bp Time Seen by Provider: 01/24/25 16:26 Related Data Home Medications ?Medication ?Instructions ?Recorded ?Confirmed losartan 100 mg tablet 100 mg PO DAILY 05/16/25 05/16/25 sertraline 50 mg tablet 50 mg PO DAILY 01/24/25 01/24/25 tramadol 50 mg tablet 50 mg PO BID 01/24/25 01/24/25 Allergies Allergy/AdvReac Type Severity Reaction Status Date / Time codeine Allergy Unknown Unknown Verified 01/24/25 14:43 [facility] ED PFSH: Medical History Hyperlipidemia Obesity Benign hypertension Hypertension Social History Smoking and tobacco/nicotine status: never used tobacco/nicotine Course Reevaluation(s): Reevaluation #1: On reevaluation patient is doing fine. She has no complaints. Physical exam conducted by me shows normal heart rhythm, no abdominal or chest wall tenderness. Abdominal sounds normal. No nystagmus, able to have conversation normally. No complaints of headache. Blood pressure normal in room. Time: 19:38 Vital Signs: Vital signs: Vital Signs Temperature 98.8 F 01/24/25 14:35 Pulse Rate 67 01/24/25 20:01 Respiratory Rate 18 01/24/25 20:01 Blood Pressure 155/70 01/24/25 20:01 Pulse Oximetry 96 01/24/25 20:01 Oxygen Delivery Me thod Room Air 01/24/25 18:00 MDM - General Adult Medical Decision Making Patient here with headache hypertension and multiple falls. CT of the C-spine head personally reviewed no acute abnormality. Patient has been evaluated with Dr. Mansfield and myself. Blood pressure is much improved currently 175/80. Enalapril given here in the ED side effects and continued reduction. Either way given that she is asymptomatic I do not believe the blood pressure to be an emergent issue at this time and is to be followed up by PCP. Patient be sent back to residential facility. EKG reviewed shows sinus bradycardia 59 with normal AR and QTc. No axis deviation. No ST elevation. Differential Diagnosis Fall, contusion, hyponatremia, UTI, subarachnoid hemorrhage, subdural hemorrhage, epidural hemorrhage, closed brain injury, C-spine fracture, UTI, anemia, uremia. And many other not mentioned diagnoses could have been present based on patient's presentation. Medical Records I reviewed the patient's medical records. Lab Data I reviewed the patient's lab results. 01/24/25 16:45 01/24/25 16:45 Radiology Impressions Cervical Spine CT 01/24/25 16:50 Follow-up IMPRESSION: No acute fracture or traumatic malalignment of the cervical spine. Degenerative changes. Head CT 01/24/25 16:50 IMPRESSION: No acute intracranial abnormality. Senescent changes. Laboratory Results WBC 7.72 10^3/uL (3.29-11.43) 01/24/25 16:45 RBC 4.68 10^6/uL (3.85-5.65) 01/24/25 16:45 Hgb 13.80 g/dL (11.27-16.99) 01/24/25 16:45 Hct 42.2 % (36-47) 01/24/25 16:45 MCV 90.2 fl (85-98) 01/24/25 16:45 MCH 29.5 pg (27-33) 01/24/25 16:45 MCHC 32.7 g/dL (30-55) 01/24/25 16:45 RDW 14.2 % (12.1-15.1) 01/24/25 16:45 Plt Count 120 10^3/cmm (157-399) L 01/24/25 16:45 MPV 13.9 fL (7.4-10.4) H 01/24/25 16:45 Neut % (Auto) 69.8 % 01/24/25 16:45 Lymph % (Auto) 18.0 % 01/24/25 16:45 [place] % (Auto) 9.3 % 01/24/25 16:45 Eos % (Auto) 1.9 % 01/24/25 16:45 Baso % (Auto) 0.6 % 01/24/25 16:45 Neut # (Auto) 5.38 10^3/uL (1.8-7.7) 01/24/25 16:45 Lymph # (Auto) 1.4 10^3/uL (0.8-4.8) 01/24/25 16:45 [place] # (Auto) 0.7 10^3/uL (0.2-0.9) 01/24/25 16:45 Eos # (Auto) 0.2 10^3/uL (0.0-0.8) 01/24/25 16:45 Baso # (Auto) 0.1 10^3/uL (0.0-0.1) 01/24/25 16:45 Nucleated RBC % (auto) 0 % 01/24/25 16:45 Nucleated RBCs # 0.0 /100WBC 01/24/25 16:45 Sodium 136 mmol/L (136-145) 01/24/25 16:45 Potassium 4.0 mmol/L (3.5-5.1) 01/24/25 16:45 Chloride 100 mmol/L (98-107) 01/24/25 16:45 Carbon Dioxide 26 mmol/L (22-29) 01/24/25 16:45 Anion Gap 14.0 (5-19) 01/24/25 16:45 BUN 18 mg/dL (8-23) 01/24/25 16:45 Creatinine 1.1 mg/dL (0.5-0.9) H 01/24/25 16:45 GFR Calculation Not Reportable 01/24/25 16:45 Glucose 110 mg/dL (65-115) 01/24/25 16:45 Calculated Osmolality 285 mOsm/kg (285-295) 01/24/25 16:45 Calcium 9.1 mg/dL (8.5-10.5) 01/24/25 16:45 Total Bilirubin 0.9 mg/dL (0.15-1.2) 01/24/25 16:45 AST 12 U/L (0-32) 01/24/25 16:45 ALT 7 U/L (0-33) 01/24/25 16:45 Alkaline Phosphatase 86 U/L (35-105) 01/24/25 16:45 Total Protein 7.2 g/dL (6.6-8.7) 01/24/25 16:45 Albumin 3.8 g/dL (3.5-5.2) 01/24/25 16:45 Globulin 3.4 g/dL (1.3-4.6) 01/24/25 16:45 Urine Color Yellow (Yellow) 01/24/25 17:34 Urine Appearance Cloudy (CLEAR) A 01/24/25 17:34 Urine pH TNP 01/24/25 17:34 Ur Specific [place] Not Reportable 01/24/25 17:34 Urine Protein Not Reportable 01/24/25 17:34 Urine Glucose (UA) Not Reportable 01/24/25 17:34 Urine Ketones Not Reportable 01/24/25 17:34 Urine Blood Not Reportable 01/24/25 17:34 Urine Nitrate Not Reportable 01/24/25 17:34 Urine Bilirubin Not Reportable 01/24/25 17:34 Urine Urobilinogen Not Reportable 01/24/25 17:34 Ur Leukocyte Esterase Not Reportable 01/24/25 17:34 Urine RBC 5-10 /hpf (0-2) H 01/24/25 17:34 Urine WBC 10-15 /hpf (0-5) H 01/24/25 17:34 Ur Squamous Epith Cells 5-10 /hpf (0-5) H 01/24/25 17:34 Amorphous Sediment Not Reportable 01/24/25 17:34 Urine Bacteria 2+ /hpf (NONE) H 01/24/25 17:34 Hyaline Casts 0-4 /lpf H 01/24/25 17:34 Urine Mucus 1+ /hpf 01/24/25 17:34 All radiology interpretation(s) finalized by discharge Discharge Plan Discharge Patient Disposition: Home Clinical Impression: Multiple falls, Headache Hypertension Qualifiers: Hypertension type: primary hypertension Qualified Code(s): I10 - Essential (primary) hypertension Condition: Stable Prescriptions: No Action tramadol 50 mg tablet 50 mg PO BID losartan 100 mg tablet 100 mg PO DAILY sertraline 50 mg tablet 50 mg PO DAILY Discharge Orders: Discharge ED (Routine); Ordered 01/24/25 Ordered By: Juan Alberto Fall Referrals: Elder Cancino MD [Primary Care Provider, Family Practice] Discharge Diet: Usual diet Discharge Activity: Resume usual activity Patient Instructions: Fall Prevention for Older Adults (ED), Chronic Hypertension (ED) Print Language: [place]ian Sign Out Sign Out Data: Patient Sign Out occurred on 01/24/25 at 18:28. Patient's care was discussed, and care was transferred from Aayush Mansfield DO to Juan Alberto Fall MD. Coding Level of Care Code ED Russian Teacher for Mabel Judd
[2025-01-24 16:43] VITALS: BP 171/80; PULSE 63; RESP 18; O2SAT 96
[2025-01-24] MEDS: hyDRALAzine 20 mg/mL INJ 1 mL 10 MG IVP ×2 (16:49→18:31)
--- NOTE | 2025-01-24 16:49 | ECG_ITS ---
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 Measurements Intervals [place] Rate: 59 P: 52 [place]: 164 QRS: 25 QRSD: 104 T: 78 QT: 425 QTc: 423 Interpretive Statements SINUS BRADYCARDIA Compared to ECG 10/11/2024 20:50:56 Sinus rhythm no longer present First degree AV block no longer present T-wave abnormality no longer present Electronically Signed On 01-25-2025 11:57:47 CDT by Edwin Bradley M.D. [email or web address]
--- NOTE | 2025-01-24 16:50 | CTR_ITS ---
PROCEDURE INFORMATION: Exam: CT Cervical Spine Without Contrast Exam date and time: 01/24/2025 5:11 PM Age: 84 years old Clinical indication: Injury or trauma; Fall; Blunt trauma; Additional info: TECHNIQUE: Imaging protocol: Computed tomography of the cervical spine without contrast. Radiation optimization: All CT scans at this facility use at least one of these dose optimization techniques: automated exposure control; mA and/or kV adjustment per patient size (includes targeted exams where dose is matched to clinical indication); or iterative reconstruction. COMPARISON: CT head wo con* [id number] 10/11/2024 7:53 PM RADIATION DOSE METRICS: Total DLP (mGy-cm): 180.5 FINDINGS: Bones: No acute displaced cervical spine fracture. Multilevel degenerative changes of the cervical spine resulting in varying degrees of neural foraminal narrowing. C5-C6 posterior disc osteophyte complex/bulging resulting in mild spinal canal stenosis. Additional multilevel disc degenerative changes. There is anterolisthesis of C2 on C3 and C3 on C4. No traumatic malalignment. Lungs: Lung apices are normal. Soft tissues: Unremarkable. CT/CT cervical spin wo con* [id number] Follow-up IMPRESSION: No acute fracture or traumatic malalignment of the cervical spine. Degenerative changes.
--- NOTE | 2025-01-24 16:50 | CTR_ITS ---
PROCEDURE INFORMATION: Exam: CT Head Without Contrast Exam date and time: 01/24/2025 5:11 PM Age: 84 years old Clinical indication: Injury or trauma; Fall; Blunt trauma (contusions or hematomas) TECHNIQUE: Imaging protocol: Computed tomography of the head without contrast. Radiation optimization: All CT scans at this facility use at least one of these dose optimization techniques: automated exposure control; mA and/or kV adjustment per patient size (includes targeted exams where dose is matched to clinical indication); or iterative reconstruction. COMPARISON: CT head wo con* [id number] 10/11/2024 7:53 PM RADIATION DOSE METRICS: Total DLP (mGy-cm): 1120.49 FINDINGS: Brain: Age-related brain parenchymal atrophy. Areas of hypoattenuation in the periventricular and subcortical deep white matter likely on the basis of chronic microvascular ischemic changes. No acute intra cranial hemorrhage. No mass effect or midline shift. No definitive CT evidence of acute territorial infarction. Cerebral ventricles: Prominence of the lateral ventricular system likely on the basis of parenchymal volume loss. Paranasal sinuses: Left maxillary sinus mucosal polyp versus retention cyst. Ethmoidal cell mucosal thickening. Mastoid air cells: Visualized mastoid air cells are well aerated. Bones: Intact calvarium. Soft tissues: Unremarkable. CT/CT head wo con* [id number] IMPRESSION: No acute intracranial abnormality. Senescent changes.
[2025-01-24 17:00] LABS: Basophils # 0.1 10^3/uL (0.0-0.1); Basophils % 0.6 %; Eosinophils # 0.2 10^3/uL (0.0-0.8); Eosinophils % 1.9 %; Hematocrit 42.2 % (36-47); Lymphocytes # 1.4 10^3/uL (0.8-4.8); Mean Corpuscular HGB Conc 32.7 g/dL (30-55); Mean Corpuscular Hemoglobin 29.5 pg (27-33); Mean Corpuscular Volume 90.2 fl (85-98); Mean Platelet Volume 13.9 fL (7.4-10.4); Monocytes # 0.7 10^3/uL (0.2-0.9); Monocytes % 9.3 %; Neutrophils # 5.38 10^3/uL (1.8-7.7); Neutrophils % 69.8 %; Nucleated Red Blood Cells % 0 %; Platelet Count 120 10^3/cmm (157-399); Red Blood Count 4.68 10^6/uL (3.85-5.65); Red Cell Distribution Width 14.2 % (12.1-15.1); White Blood Count 7.72 10^3/uL (3.29-11.43)
[2025-01-24 17:15] LABS: Alanine Aminotransferase 7 U/L (0-33); Albumin Level 3.8 g/dL (3.5-5.2); Alkaline Phosphatase 86 U/L (35-105); Aspartate Amino Transferase 12 U/L (0-32); Blood Urea Nitrogen 18 mg/dL (8-23); Calcium 9.1 mg/dL (8.5-10.5); Carbon Dioxide 26 mmol/L (22-29); Chloride 100 mmol/L (98-107); Creatinine Clr Calc Pharmacy 40.7511; Globulin 3.4 g/dL (1.3-4.6); Glucose 110 mg/dL (65-115); Osmolality Calculated 285 mOsm/kg (285-295); Sodium 136 mmol/L (136-145); Total Bilirubin 0.9 mg/dL (0.15-1.2); Total Protein 7.2 g/dL (6.6-8.7)
[2025-01-24 17:30] VITALS: BP 188/85; PULSE 65; O2SAT 98
[2025-01-24 17:47] LABS: Add Urine Microscopic? NO
[2025-01-24 17:48] LABS: Bacteria Urine 2+ /hpf; Mucus Urine 1+ /hpf; UA Manual Slide Review YES; Urine Appearance Cloudy (CLEAR); Urine Color Yellow (Yellow)
[2025-01-24 17:49] LABS: Add Urine Culture? Yes; Charge for UA Resulting for Rev; Hyaline Casts Urine 0-4 /lpf
[2025-01-24 18:00] VITALS: BP 199/96; PULSE 67; O2SAT 96
[2025-01-24 18:30] VITALS: BP 175/80; PULSE 70; O2SAT 92
[2025-01-24] MEDS: enalaprilat 2.5 mg/2 mL SDV 0.625 MG IVP (18:31)
[2025-01-24 20:01] VITALS: BP 155/70; PULSE 67; RESP 18; O2SAT 96
== END 2025-01-24 20:02 | disposition home or self-care (01) ==
PROVIDERS: Family Medicine; Emergency Provider Emergency Medicine; PCP Family Medicine
DX: R51.9 Headache, unspecified (principal); I10 Essential (primary) hypertension; R29.6 Repeated falls; E78.5 Hyperlipidemia, unspecified
CPT/HCPCS: 36415; 70450; 72125; 80053; 81003; 85025; 87086; 93005; 96374; 96375; 96376; 99285; J0360; J9999

== ENCOUNTER 2025-03-19 20:09 | Outpatient (CLI) | payer MEDICARE, OTHER, SELFPAY ==
[2025-03-19 20:27] LABS: Glucose Urine UA Negative (Normal); Nitrate Urine Negative (Negative); Specific Gravity, Urine 1.017 (1.005-1.030)
[2025-03-19 20:32] LABS: Add Urine Microscopic? YES
== END 2025-03-19 20:10 | disposition home or self-care (01) ==
LOC: LAB 20:16
PROVIDERS: PCP Family Medicine; Visit Provider Family Medicine
DX: N39.0 Urinary tract infection, site not specified (principal)
CPT/HCPCS: 81001; 87086

== ENCOUNTER 2025-05-31 16:37 | Outpatient (CLI) | payer MEDICARE, OTHER, SELFPAY ==
[2025-05-31 17:14] LABS: Hematocrit 40.9 % (36-47); Hemoglobin 13.10 g/dL (11.27-16.99); Mean Corpuscular HGB Conc 32.0 g/dL (30-55); Mean Corpuscular Hemoglobin 29.1 pg (27-33); Mean Corpuscular Volume 90.9 fl (85-98); Nucleated Red Blood Cells % 0 %; Platelet Count 160 10^3/cmm (157-399); Red Blood Count 4.50 10^6/uL (3.85-5.65); White Blood Count 6.06 10^3/uL (3.29-11.43)
[2025-05-31 17:21] LABS: Slide Review Slide Review Perform
[2025-05-31 17:39] LABS: Alanine Aminotransferase 9 U/L (0-33); Albumin Level 4.2 g/dL (3.5-5.2); Alkaline Phosphatase 101 U/L (35-105); Anion Gap 16.2 (5-19); Aspartate Amino Transferase 13 U/L (0-32); Blood Urea Nitrogen 22 mg/dL (8-23); Calcium 9.0 mg/dL (8.5-10.5); Carbon Dioxide 28 mmol/L (22-29); Chloride 98 mmol/L (98-107); Globulin 2.8 g/dL (1.3-4.6); Glucose 97 mg/dL (65-115); Osmolality Calculated 289 mOsm/kg (285-295); Potassium 4.2 mmol/L (3.5-5.1); Sodium 138 mmol/L (136-145); Total Protein 7.0 g/dL (6.6-8.7)
[2025-05-31 17:54] LABS: Estmated Average Glucose 120; Hemoglobin A1C 5.8 % (4.0-6.0)
== END 2025-05-31 16:38 | disposition home or self-care (01) ==
PROVIDERS: PCP Family Medicine; Visit Provider Family Medicine
DX: E11.9 Type 2 diabetes mellitus without complications (principal); I10 Essential (primary) hypertension
CPT/HCPCS: 80053; 83036; 85025